=== PATIENT | male | born 1985 | race Two or more races ===

== ENCOUNTER → 2016-07-17 | Outpatient (CLI) | payer OTHER | LOC: BRMIMAGING 14:07 | PROVIDERS: ATTEND Physician Assistant | DX: S62.512A Displaced fracture of proximal phalanx of left thumb, initial encounter for closed fracture (principal); W22.8XXA Striking against or struck by other objects, initial encounter | CPT/HCPCS: 73130-PO; 73140-PO ==

== ENCOUNTER → 2016-08-01 | Outpatient (CLI) | payer OTHER | LOC: BRMIMAGING 10:44 | PROVIDERS: ATTEND Internal Medicine | DX: S62.522D Displaced fracture of distal phalanx of left thumb, subsequent encounter for fracture with routine healing (principal) | CPT/HCPCS: 73140-PO ==

== ENCOUNTER → 2016-08-22 | Outpatient (CLI) | payer OTHER | LOC: BRMIMAGING 10:31 | PROVIDERS: ATTEND Internal Medicine | DX: S62.522D Displaced fracture of distal phalanx of left thumb, subsequent encounter for fracture with routine healing (principal) | CPT/HCPCS: 73140-PO ==